=== PATIENT | female | born 1970 | race Caucasian/White ===

== ENCOUNTER 2021-05-12 12:36 | Emergency (ER) | payer OTHER ==
[~2021-05-12] VITALS: Ht 162.6 cm; Wt 81.6 kg
[2021-05-12 12:41] VITALS: BP 133/77
--- NOTE | 2021-05-12 13:09 | NUR ---
51 YEAR OLD FEMALE COMPLAINS OF UPPER ABDOMINAL PAIN X YESTERDAY. PT DENIES N/V/D. PT STATES SYMPTOMS SIMILAR TO PREVIOUS SYMPTOMS OF DIVERTICULITIS. PT AOX4, BREATHING EVEN AND UNLABORED, SKIN WARM AND DRY. BED IN LOWEST POSITION, LOCKED, BED RAIL UPX1. PMH - DIVERTICULITIS ALLERGIES - TYLENOL, CODEINE
[2021-05-12 13:11] LABS: BASOPHILS % (AUTO) 0.4 % (0.0-2.0); EOSINOPHILS % (AUTO) 0.1 % (0.0-4.0); HEMATOCRIT 41.4 % (36-48); HEMOGLOBIN 14.7 g/dL (12.0-16.0); LYMPHOCYTES % (AUTO) 15.6 % (20.5-51.1); MEAN CORPUSCULAR HEMOGLOBIN 31 pg (27-31); MEAN CORPUSCULAR HGB CONC 36 g/dL (33-37); MEAN CORPUSCULAR VOLUME 88.2 fL (80-94); MONOCYTES # (AUTO) 0.3 K/uL (0.8-1.0); MONOCYTES % (AUTO) 4.9 % (1.7-9.3); NEUTROPHILS # (AUTO) 4.9 K/uL (1.8-7.7); PLATELET COUNT (AUTO) 168 K/uL (140-450); RED BLOOD CELL COUNT(AUTO) 4.69 MIL/uL (4.20-5.40); RED CELL DISTRIBUTION WIDTH 13.8 % (11.6-13.7); WHITE BLOOD COUNT (AUTO) 6.2 K/uL (4.8-10.8)
[2021-05-12 13:28] LABS: ALBUMIN 3.5 g/dL (3.4-5.0); ANION GAP 15.2 (8-16); CARBON DIOXIDE 23.1 mmol/L (21-32); CREATININE 0.9 mg/dL (0.6-1.3); POTASSIUM 3.3 mmol/L (3.5-5.1); TOTAL BILIRUBIN 0.6 mg/dL (0.0-1.0)
[2021-05-12] MEDS ORDERED: CIPR250T6 PO (14:40)
[2021-05-12] MEDS ORDERED: METR500T1 PO (14:40)
[2021-05-12 15:03] VITALS: BP 133/77
--- NOTE | 2021-05-12 15:03 | NUR ---
Patient discharged with v/s stable. Written and verbal after care instructions about diverticulitis given and explained. Patient alert, oriented and verbalized understanding of instructions. Ambulatory with steady gait. All questions addressed prior to discharge. ID band removed. Patient advised to follow up with PMD. Rx of CIPRO, FLAGYL given. Patient educated on indication of medication including possible reaction and side effects. Opportunity to ask questions provided and answered.
== END 2021-05-12 15:03 | disposition home or self-care (01) ==
LOC: MED 12:36
DX: K57.92 Diverticulitis of intestine, part unspecified, without perforation or abscess without bleeding (principal); Z79.899 Other long term (current) drug therapy; Z88.5 Allergy status to narcotic agent; Z88.6 Allergy status to analgesic agent
CPT/HCPCS: 36415; 80053; 83690; 85025; 99284

== ENCOUNTER 2021-08-19 15:16 | Emergency (ER) | payer OTHER ==
[~2021-08-19] VITALS: Ht 152.4 cm; Wt 85.7 kg
[~2021-08-19 15:16] MED LIST: CIPR250T6 PO; METR500T1 PO
[2021-08-19 15:24] VITALS: BP 144/92
--- NOTE | 2021-08-19 15:27 | NUR ---
PT TO WAIT IN LOBBY.
--- NOTE | 2021-08-19 15:49 | NUR ---
PT TAKEN TO ER BED 2.
[2021-08-19] MEDS ORDERED: GABA-636 PO (16:03)
--- NOTE | 2021-08-19 16:08 | NUR ---
NO NURSING CARE GIVEN
[2021-08-19 16:09] VITALS: BP 140/88
== END 2021-08-19 16:09 | disposition home or self-care (01) ==
LOC: MED 15:16
DX: M79.641 Pain in right hand (principal); Z79.899 Other long term (current) drug therapy; Z98.890 Other specified postprocedural states; Z88.5 Allergy status to narcotic agent; Z88.6 Allergy status to analgesic agent
CPT/HCPCS: 99281

== ENCOUNTER 2023-04-22 18:32 | Emergency (ER) | payer OTHER ==
[~2023-04-22] VITALS: Ht 162.6 cm; Wt 83.9 kg
[~2023-04-22 18:32] MED LIST changes: +GABA-636 PO
[2023-04-22 18:37] VITALS: BP 149/100
--- NOTE | 2023-04-22 18:44 | NUR ---
pt ambulatory to [facility]
--- NOTE | 2023-04-22 20:37 | NUR ---
pt to bed 11 ambulatory
--- NOTE | 2023-04-22 21:20 | NUR ---
MD Dumont at bedside examining pt.
[2023-04-22] MEDS ORDERED: CEPH-588 PO (21:21)
[2023-04-22 21:29] VITALS: BP 145/87
--- NOTE | 2023-04-22 21:30 | NUR ---
Patient discharged with v/s stable. Written and verbal after care instructions given and explained. Patient alert, oriented and verbalized understanding of instructions. Ambulatory with steady gait. All questions addressed prior to discharge. ID band removed. Patient advised to follow up with PMD. Rx of Keflex sent to preferred pharmacy. Patient educated on indication of medication including possible reaction and side effects. Opportunity to ask questions provided and answered.
== END 2023-04-22 21:30 | disposition home or self-care (01) ==
LOC: MED 18:32
DX: L03.032 Cellulitis of left toe (principal); Z88.5 Allergy status to narcotic agent; Z88.6 Allergy status to analgesic agent; Z79.899 Other long term (current) drug therapy
CPT/HCPCS: 99283

== ENCOUNTER 2023-10-20 17:59 | Emergency (ER) | payer OTHER ==
[~2023-10-20] VITALS: Ht 165.1 cm; Wt 80.7 kg
[~2023-10-20 17:59] MED LIST changes: +CEPH-588 PO
[2023-10-20 18:28] VITALS: BP 127/96; PULSE 106; RESP 20; TEMP 97.1; O2SAT 98
[2023-10-20 19:56] LABS: FLU A ANTIGEN negative (NEGATIVE); FLU B ANTIGEN NEGATIVE (NEGATIVE)
[2023-10-20] MEDS ORDERED: PROM118S5 PO (21:01)
[2023-10-20] MEDS ORDERED: IBUP-2213 PO (21:01)
[2023-10-20] MEDS ORDERED: CETI-24 PO (21:01)
[2023-10-20 21:12] VITALS: BP 127/96; PULSE 106; RESP 20; TEMP 97.1; O2SAT 98
== END 2023-10-20 21:12 | disposition home or self-care (01) ==
LOC: MED 17:59
DX: J06.9 Acute upper respiratory infection, unspecified (principal); Z20.822 Contact with and (suspected) exposure to COVID-19; Z79.899 Other long term (current) drug therapy; Z88.5 Allergy status to narcotic agent
CPT/HCPCS: 71045; 99284

== ENCOUNTER 2024-04-06 20:20 | Emergency (ER) | payer OTHER ==
[~2024-04-06] VITALS: Ht 165.1 cm; Wt 81.6 kg
[~2024-04-06 20:20] MED LIST changes: +CETI-24 PO; +IBUP-2213 PO; +PROM118S5 PO
[2024-04-06 21:00] VITALS: BP 134/95; PULSE 90; RESP 19; TEMP 98; O2SAT 97
[2024-04-06] MEDS ORDERED: CEPH-588 PO (23:07)
[2024-04-06] MEDS ORDERED: NAPR-337 PO (23:07)
[2024-04-06 23:15] VITALS: BP 134/95; PULSE 90; RESP 19; TEMP 98; O2SAT 97
== END 2024-04-06 23:15 | disposition home or self-care (01) ==
LOC: MED 20:20
DX: L60.0 Ingrowing nail (principal); Z79.899 Other long term (current) drug therapy
CPT/HCPCS: 99283